=== PATIENT | male | born 1980 | race Caucasian/White ===

== ENCOUNTER 2020-11-27 19:54 | Outpatient (CLI) | payer BC | END 2020-11-27 19:55 | disposition home or self-care (01) | LOC: COV 19:54 | PROVIDERS: ATTEND Family Medicine | DX: Z20.822 Contact with and (suspected) exposure to COVID-19 (principal) ==

== ENCOUNTER 2023-11-09 10:39 | Outpatient (CLI) | payer BC ==
--- NOTE | 2023-11-09 16:10 | XRAY Report ---
PROCEDURE: Sacrum/Coccyx INDICATIONS: SACROCOCCYGEAL DISORDER TECHNIQUE: 3 views of the sacrum and coccyx acquired. COMPARISON: None. FINDINGS: Bones: No fractures or dislocations. No suspicious bony lesions. Soft tissues: Visualized bowel gas pattern is normal. No suspicious soft tissue densities. IMPRESSION: No acute bony abnormality. Reviewed by: Karlene Almeida MD on 11/09/2023 4:09 PM PST Approved by: Karlene Almeida MD on 11/09/2023 4:09 PM PST Station ID: [id number]
== END 2023-11-09 10:40 | disposition home or self-care (01) ==
LOC: DI 10:39
PROVIDERS: ATTEND Naturopath
DX: M53.3 Sacrococcygeal disorders, not elsewhere classified (principal)